=== PATIENT | male | born 1995 | race Caucasian/White ===

== ENCOUNTER 2019-12-25 06:52 | Outpatient (NON) | payer OTHER, SELFPAY ==
[2019-12-25 18:42] LABS: SARS-CoV-2 RNA PCR Negative
== END 2019-12-25 06:53 ==
PROVIDERS: Visit Provider Nurse Practitioner Adult Health
DX: Z20.828 Contact with and (suspected) exposure to other viral communicable diseases (principal); R50.9 Fever, unspecified
CPT/HCPCS: 87635; C9803; U0003